=== PATIENT | male | born 1980 | race Caucasian/White ===

== ENCOUNTER 2017-01-19 11:40 | Emergency (ER) | payer OTHER ==
[2017-01-19 11:52] VITALS: BP 137/90; PULSE 89; TEMP 98.9; BMI 34.9
--- NOTE | 2017-01-19 11:53 | PDOC ---
History of Present Illness - General Chief Complaint: Chest Pain Stated Complaint: CHEST PAIN Time Seen by Provider: 01/19/17 11:53 - History of Present Illness Initial Comments: 01/19/17 13:12 Chief complaint: Epigastric pain History of present illness: Patient complains of severe epigastric pain since this morning described as a "burning" just below the xiphoid. This extends to the right upper quadrant. There is mild nausea, no vomiting, and a normal bowel movement occurred this morning. There is been no recent hematemesis, melena, or bloody stool. The patient has a history of severe GERD, is under the care of her qa internship, but has required parenteral analgesics in the past for this condition. Review of systems: Denies chest pain, shortness of breath, diaphoresis, radiation of pain to the shoulders arms or jaw, vomiting, diarrhea, constipation , hematemesis, melena, bloody stool, urinary tract symptoms, visual or focal neurologic symptoms, unsteadiness of gait. Remainder systems reviewed and found to be negative Past medical history: GERD, as noted above. Otherwise healthy. Has had GI evaluation including gallbladder sono, HIDA scan, CT scans, and endoscopy in the past without definite diagnosis made. Social history: Works as a clinical specialist medical device at [employer], no alcohol or tobacco or drugs. Fully active without disability Family history: Significant for coronary artery disease and diabetes. Physical exam: Alert and oriented 3, well-developed well-nourished, moderate distress due to epigastric pain. Cooperative Afebrile, vital signs normal No pallor or icterus. PERRLA, fundi benign, ENT clear. Neck supple without bruit mass or nodes Lungs clear to P&A CV regular without murmur rub or gallop pulses full and symmetric no JVD or edema Abdomen mildly distended, soft without organomegaly. There is moderate tenderness in the epigastrium and right upper quadrant with a positive Alegre sign. There is no lower quadrant tenderness and no CVAT Neurological intact. Gait stable and unimpaired Skin turgor adequate, no rash, mucous membranes wet Extremities no CCE Impression: Probable severe gastritis, GERD, rule out gallbladder or liver disease Plan: Analgesics, labs for further diagnosis, ultrasound of the gallbladder, and further evaluation depending on results. 01/19/17 14:40 Past History - Past Medical History Allergies/Adverse Reactions: Allergies Allergy/AdvReac Type Severity Reaction Status Date / Time No Known Allergies Allergy Verified 01/19/17 11:43 Home Medications: Ambulatory Orders Acetaminophen W/ Codeine #3 [Tylenol # 3] 2 combo PO Q4H PRN #14 tablet MDD 8 GI Disorders: Yes (GERD) Kidney Stones: Yes - Immunization History Immunization Up to Date: No - Suicide/Smoking/Psychosocial Hx Smoking History: Never smoked Have you smoked in the past 12 months: No Hx Alcohol Use: No Drug/Substance Use Hx: No Substance Use Type: None *Physical Exam - Vital Signs Last Vital Signs Temp Pulse Resp BP Pulse Ox 98.9 F 89 18 137/90 97 01/19/17 11:40 01/19/17 11:40 01/19/17 11:40 01/19/17 11:40 01/19/17 11:40 ED Treatment Course - LABORATORY CBC & Chemistry Diagram: 01/19/17 12:10 01/19/17 12:10 - ADDITIONAL ORDERS Additional order review: Laboratory Results 01/19/17 01/19/17 13:30 12:10 Sodium 136 Potassium 3.7 Chloride 105 Carbon Dioxide 23 Anion Gap 8 BUN 15 Creatinine 1.0 Creat Clearance w eGFR > 60 Random Glucose 142 H Calcium 9.3 Total Bilirubin 0.6 AST 21 ALT 31 Alkaline Phosphatase 47 Creatine Kinase 186 Creatine Kinase Index 1.7 CK-MB (CK-2) 3.2 Troponin I < 0.03 L Total Protein 7.9 Albumin 4.7 Urine Color Eva Urine Appearance Clear Urine pH 7.0 Ur Specific [place] 1.020 Urine Protein Negative Urine Glucose (UA) Negative Urine Ketones Negative Urine Blood Negative Urine Nitrite Negative Urine Bilirubin Negative Urine Urobilinogen 0.2 Ur Leukocyte Esterase Negative 01/19/17 12:10 RBC 5.28 MCV 85.0 MCHC 33.8 RDW 13.0 MPV 8.9 Neutrophils % 80.2 Lymphocytes % 13.5 Monocytes % 3.3 L Eosinophils % 0.1 Basophils % 2.9 H - RADIOLOGY Radiology Studies Ordered: Category Date Time Status ABDOMEN FLAT & UPRIGHT [RAD] Stat Radiology 01/19/17 15:03 Completed ABDOMEN US -LIMITED [US] Stat Ultrasound 01/19/17 12:24 Completed - Medications Given in the ED: ED Medications Discontinued Medications Generic Name Dose Route Start Last Admin Trade Name Freq PRN Reason Stop Dose Admin Hyoscyamine Sulfate 0.125 mg 01/19/17 14:17 01/19/17 14:20 Levsin Odt - PO 01/19/17 14:18 0.125 mg ONCE ONE Administration Pantoprazole Sodium 40 mg/ 100 mls @ 200 mls/hr 01/19/17 11:56 01/19/17 12:12 Sodium Chloride IVPB 01/19/17 12:25 200 mls/hr ONCE ONE Administration Morphine Sulfate 6 mg 01/19/17 12:21 01/19/17 12:25 Morphine Injection - IVPUSH 01/19/17 12:22 6 mg ONCE ONE Administration Morphine Sulfate 4 mg 01/19/17 14:51 01/19/17 14:57 Morphine Injection - IVPUSH 01/19/17 14:52 4 mg ONCE ONE Administration Ondansetron HCl 4 mg 01/19/17 12:00 01/19/17 12:00 Zofran Injection IVPB 01/19/17 12:01 4 mg ONCE ONE Administration Medical Decision Making - Medical Decision Making 01/19/17 13:19 White blood count normal. Remainder of CBC normal. Chemistries with a glucose of 142, normal LFTs and no other significant abnormalities. Troponin is negative. Ultrasound pending. Patient is much more comfortable after Zofran, Protonix, and morphine. 01/19/17 14:40 Ultrasound shows multiple small gallstones, but no sign of acute cholecystitis. Biliary colic is still an outside possibility. No other abnormalities are seen. The patient remains distended and suspect that the nature of the patient's pain is due to incomplete emptying the stomach and stomach distention. NG tube was recommended, but the patient refused. He has received morphine with partial relief. 01/19/17 14:42 EKG reveals normal sinus rhythm 90 per minute. There is a nonspecific ST-T wave abnormality in the inferior leads that have been present since at least December, on an old EKG. There is incomplete right bundle-branch block which was also present on prior EKG. EKG is essentially unchanged. Troponin, as noted above, is negative. The patient symptoms are not consistent with cardiac disease. 01/19/17 16:13 Patient is feeling much better. Pain is resolving. The distention and right upper quadrant tenderness has subsided. He is instructed to resume his omeprazole, prescribed Tylenol with Codeine if pain recurs, to see his qa internship for further evaluation and treatment, including endoscopy. To return to the emergency room if there is fever, vomiting, or more severe pain. Patient fully ambulatory and in no pain or other distress upon discharge with his to follow-up as directed *DC/Admit/Observation/Transfer Diagnosis at time of Disposition: Gastroenteritis - Discharge Dispostion Disposition: HOME Condition at time of disposition: Improved Admit: No - Prescriptions Prescriptions: Acetaminophen W/ Codeine #3 [Tylenol # 3] 2 combo PO Q4H PRN #14 tablet MDD 8 PRN Reason: Severe Pain - Patient Instructions Printed Discharge Instructions: DI for Gastritis Additional Instructions: Clear liquid diet tonight. Progressing as tolerated tomorrow. Resume omeprazole. Pain medication as needed. If pain worsens or there is fever, vomiting, or diarrhea, return to ER. Otherwise see her qa internship and consider repeat endoscopy. - Post Discharge Activity Forms/Work/School Notes: Back to Work
[2017-01-19] MEDS ORDERED: PANTOPRAZOLE SODIUM 40 MG in SODIUM CHLORIDE 100 ML IVPB ONE (11:56)
[2017-01-19] MEDS ORDERED: PANTOPRAZOLE SODIUM 40 MG VIAL ONE (11:58)
[2017-01-19] MEDS ORDERED: ONDANSETRON 4 MG/2 ML VIAL ONE (11:59)
[2017-01-19] MEDS ORDERED: ONDANSETRON 4 MG/2 ML VIAL IVPB ONE (12:00)
[2017-01-19 12:16] LABS: BASOPHIL 2.9 % (0-2.0); EOSINOPHIL 0.1 % (0-4.5); MCH 28.7 pg (25.7-33.7); MCHC 33.8 g/dl (32.0-35.9); MEAN PLT VOLUME 8.9 fl (7.5-11.1); NEUTROPHILS 80.2 % (42.8-82.8); PLATELET COUNT 183 K/MM3 (134-434); WHITE BLOOD COUNT 8.5 K/mm3 (4.0-10.8)
[2017-01-19] MEDS ORDERED: morphine CARPU-JECT 4 MG/1 ML DISP.SYRIN IVPUSH ONE ×2 (12:21→14:51)
[2017-01-19] MEDS ORDERED: morphine CARPU-JECT 4 MG/1 ML DISP.SYRIN ONE ×3 (12:22→14:51)
[2017-01-19] MEDS ORDERED: morphine CARPU-JECT 2 MG/1 ML DISP.SYRIN ONE (12:22)
[2017-01-19 12:40] LABS: ALBUMIN 4.7 g/dl (3.5-5.0); ALK PHOS 47 U/L (32-92); ANION GAP 8 (8-16); BILIRUBIN,TOTAL 0.6 mg/dl (0.2-1.0); CALCIUM 9.3 mg/dl (8.4-10.2); CO2 23 mmol/L (22-28); CPK 186 IU/L (39-308); GLUCOSE,RANDOM 142 mg/dl (74-106); SGOT/AST 21 U/L (10-42); SGPT/ALT 31 U/L (10-40); TOT PROT 7.9 g/dl (6.4-8.3)
[2017-01-19 12:59] LABS: TROPONIN I (DFP) < 0.03 ng/ml (0.03-0.50)
[2017-01-19 13:35] LABS: URINE APPEARANCE Clear; URINE BILIRUBIN Negative (NEGATIVE); URINE BLOOD Negative (NEGATIVE); URINE COLOR AMBER; URINE GLUCOSE (UA) Negative (NEGATIVE); URINE KETONE Negative (NEGATIVE); URINE LEUK ESTERASE Negative (NEGATIVE); URINE NITRITE Negative (NEGATIVE); URINE PROTEIN Negative (NEGATIVE); URINE UROBILINOGEN 0.2 (0.2-1.0)
[2017-01-19] MEDS ORDERED: HYOSCYAMINE SULFATE 0.125 MG *ODT PO ONE (14:17)
[2017-01-19] MEDS ORDERED: HYOSCYAMINE SULFATE 0.125 MG *ODT ONE (14:19)
--- NOTE | 2017-01-20 16:44 | EKG ---
Test Reason : Blood Pressure : / mmHG Vent. Rate : 090 BPM Atrial Rate : 090 BPM P-R Int : 164 ms QRS Dur : 094 ms QT Int : 366 ms P-R-T Axes : 029 072 004 degrees QTc Int : 447 ms SINUS RHYTHM POSSIBLE LEFT ATRIAL ENLARGEMENT NONSPECIFIC ST AND T WAVE ABNORMALITY ABNORMAL ECG WHEN COMPARED WITH ECG OF 03-JAN-2015 21:59, RSR' pattern is no longer present in V1-2 Confirmed by ZACH MANZANO, SKINNY ([id number]) on 01/20/2017 4:44:36 PM Referred By: MARY PAYNE Confirmed By:SKINNY SERRANO MD
== END 2017-01-19 16:05 | disposition home or self-care (01) ==
LOC: FER 11:40
PROC: 3E033NZ Introduction of Analgesics, Hypnotics, Sedatives into Peripheral Vein, Percutaneous Approach (ICD-10-PCS; principal; 2017-01-19)
PROC: 3E033GC Introduction of Other Therapeutic Substance into Peripheral Vein, Percutaneous Approach (ICD-10-PCS; 2017-01-19)
DX: K52.9 Noninfective gastroenteritis and colitis, unspecified (principal)
CPT/HCPCS: 36415; 74020-TC; 76705-TC; 80053; 81003; 82550; 82553; 84484; 85025; 93005; 99285-25

== ENCOUNTER 2017-10-27 06:24 | Emergency (ER) | payer OTHER ==
[2017-10-27 07:02] VITALS: BMI 33.4
--- NOTE | 2017-10-27 07:26 | PDOC ---
History of Present Illness - General Chief Complaint: Chest Pain Stated Complaint: CHEST AND ABDOMINAL PAIN Time Seen by Provider: 10/27/17 07:01 History Source: Patient Exam Limitations: No Limitations - History of Present Illness Initial Comments: 10/27/17 07:17 Mr. Cross is a 37 yo M with a hx of GERD who presents with epigastric pain since 3am today. The pain woke him up and is described as a burning crushing pain that originates in the epigastric region and radiates bilaterally to his back. It is constant, 10/10 without specific aggravating factors and denies relief with antacid and xanax. Yesterday he consumed soda and nachos for lunch and fried chicken for dinner approximately ay 5pm. He endorses having 2x vomiting events since then with "small amount of red blood" last one within the hour and had acid reflux concurrent to awakening with the pain. Denies the following: SOB, fever, radiating pain to the arms, melena, recent alcohol use, dysuria, hematuria, lower abdominal pain, and lightheadedness. Endorses having gallstones. Pmhx: GERD. Denies cardiac and respiratory disease hx. Shx: None Meds: None Allergies: None Social hx: Denies smoking, rare alcohol consumption, and substance abuse. PCP: Previously seen by Dr. David Clolado at [facility] for GI. Last visit 2 years ago for endoscopy and colonscopy; no abnormalities detected. 10/27/17 07:26 10/27/17 08:19 Past History - Past Medical History Allergies/Adverse Reactions: Allergies Allergy/AdvReac Type Severity Reaction Status Date / Time No Known Allergies Allergy Verified 10/27/17 07:00 Home Medications: Ambulatory Orders Famotidine [Pepcid -] 40 mg PO DAILY 10/27/17 Ibuprofen 600 mg PO QID PRN #20 tablet 10/27/17 Ondansetron HCl [Zofran] 8 mg PO TID PRN #15 tablet 10/27/17 Oxycodone HCl/Acetaminophen [Percocet 5-325 mg Tablet] 1 tab PO Q6H PRN #15 tablet MDD 4 10/27/17 GI Disorders: Yes (GERD) Kidney Stones: Yes - Immunization History Immunization Up to Date: No - Suicide/Smoking/Psychosocial Hx Smoking History: Never smoked Have you smoked in the past 12 months: No Information on smoking cessation initiated: No Hx Alcohol Use: No Drug/Substance Use Hx: No Substance Use Type: None Review of Systems - Review of Systems Able to Perform ROS?: Yes Constitutional: Yes: Diaphoresis. No: Chills, Fever HEENTM: No: Recent change in vision, Ear Pain, Nose Pain, Throat Pain Respiratory: No: Cough, Shortness of Breath Cardiac (ROS): No: Chest Pain, Lightheadedness, Palpitations ABD/GI: Yes: Nausea, Vomiting (Endorses having 2 events with "small amount of red blood"). No: Abdominal Distended, Blood Streaked Bowels, Constipated, Diarrhea, Rectal Bleeding, Abdominal cramping, Tarry Stools : No: Burning, Dysuria, Flank Pain, Hematuria Musculoskeletal: No: Back Pain, Joint Pain Integumentary: No: Rash Neurological: No: Headache Psychiatric: Yes: Stressors (mother is ill) Endocrine: No: Unexplained Weight Gain *Physical Exam - Vital Signs Last Vital Signs Temp Pulse Resp BP Pulse Ox 98.1 F 87 19 144/84 100 10/27/17 06:30 10/27/17 06:30 10/27/17 06:30 10/27/17 06:30 10/27/17 06:30 - Physical Exam General Appearance: Yes: Nourished, Appropriately Dressed HEENT: positive: Normal Voice Respiratory/Chest: positive: Lungs Clear, Normal Breath Sounds Cardiovascular: positive: Regular Rhythm, Regular Rate, S1, S2, Systolic Murmur Gastrointestinal/Abdominal: positive: Normal Bowel Sounds, Tender (epigastric, LUQ tenderness) Musculoskeletal: positive: Normal Inspection. negative: CVA Tenderness Extremity: positive: Normal Inspection Integumentary: positive: Normal Color, Dry, Warm Neurologic: positive: Fully Oriented, Alert ED Treatment Course - LABORATORY CBC & Chemistry Diagram: 10/27/17 07:52 10/27/17 08:10 Medical Decision Making - Medical Decision Making 10/27/17 08:23 Mr. Cross is a 37 yo M with a hx of GERD presents to the emergency department with epigastric pain with onset at 3am this morning. It radiates to the back bilaterally and has a hx of GERD and cholilithiasis Initial vitals: Initial Vital Signs Temp Pulse Resp BP Pulse Ox 98.1 F 87 19 144/84 100 10/27/17 06:30 10/27/17 06:30 10/27/17 06:30 10/27/17 06:30 10/27/17 06:30 Work up CBC, CMP, lipase, UA, urine culture, EKG, and troponins were ordered. In addition, a RUQ ultrasound was ordered. RUQ US showed cholilithiasis and fatty infiltrate in the liver. EKG was within normal limits. Regular rate, and rhythm with no signs of ST elevation/depression with repolarization abnormalities. Laboratory Results - last 24 hr 10/27/17 10/27/17 10/27/17 07:52 08:10 08:50 WBC 6.2 RBC 5.00 Hgb 14.6 Hct 42.5 MCV 85.0 MCH 29.2 MCHC 34.4 RDW 14.5 Plt Count 132 L D MPV 8.2 Absolute Neuts (auto) 5.1 Neutrophils % 82.0 Lymphocytes % 11.6 D Monocytes % 5.9 Eosinophils % 0.4 D Basophils % 0.1 Nucleated RBC % 0 Sodium 139 Potassium 4.1 Chloride 105 Carbon Dioxide 25 Anion Gap 9 BUN 15 Creatinine 1.1 Creat Clearance w eGFR > 60 Random Glucose 143 H D Calcium 8.7 Total Bilirubin 0.3 AST 23 D ALT 42 D Alkaline Phosphatase 59 Creatine Kinase 258 Creatine Kinase Index 0.9 CK-MB (CK-2) 2.41 Troponin I < 0.02 Total Protein 7.7 Albumin 4.2 Lipase 186 Urine Color Yellow Urine Appearance Slcloudy Urine pH 5.0 Ur Specific [place] 1.026 Urine Protein 1+ H Urine Glucose (UA) Negative Urine Ketones Negative Urine Blood 1+ H Urine Nitrite Negative Urine Bilirubin Negative Urine Urobilinogen Negative Ur Leukocyte Esterase Negative Urine WBC (Auto) 1 Urine RBC (Auto) <1 Urine Mucus Rare 10/27/17 11:23 *DC/Admit/Observation/Transfer Diagnosis at time of Disposition: Biliary colic - Discharge Dispostion Disposition: HOME Decision to Admit order: No - Prescriptions Prescriptions: Ibuprofen 600 mg PO QID PRN #20 tablet PRN Reason: Pain Ondansetron HCl [Zofran] 8 mg PO TID PRN #15 tablet PRN Reason: Nausea Oxycodone HCl/Acetaminophen [Percocet 5-325 mg Tablet] 1 tab PO Q6H PRN #15 tablet MDD 4 PRN Reason: Severe Pain - Referrals Referrals: Jatinder Baez MD [Staff Physician] - - Patient Instructions Printed Discharge Instructions: DI for Biliary Colic Additional Instructions: You have been diagnosed with biliary colic. Please return to the emergency department if pain worsens or other concerning symptoms arise. Do not operate a vehicle or a machinery while taking percocet. In addition, do not consume alcohol while taking percocet. Follow up with the referred doctor for surgical consultation and followup. - Post Discharge Activity
--- NOTE | 2017-10-27 07:34 | PDOC ---
Attending Attestation - Resident Resident Name: Cesar King - ED Attending Attestation I have performed the following: I have examined & evaluated the patient, The case was reviewed & discussed with the resident, I agree w/resident's findings & plan, Exceptions are as noted - HPI HPI: 10/27/17 07:32 37 year old male c/ hx of GERD, gallstones presents with upper abdominal pain since 3 am. The patient had a heavy meal yesterday night including fried chicken. Went to bed feeling well, but woke up at 3 am with severe burning epigastric pain radiating into the mid chest. Denies SOB, but reported nausea and 2 episodes of vomiting. Reportedly had a small amounts of flecks of blood on vomitus. Denies fevers, chills. Denies alcohol use, dysuria, hematuria. Pt had taken zantac overnight but did not improve the pain. Came into ED feeling uncomfortable. - Physicial Exam PE: 10/27/17 07:47 GENERAL: Awake, alert, and fully oriented. +uncomfortable appearing HEAD: No signs of trauma EYES: EOMI, sclera anicteric, conjunctiva clear ENT: Auricles normal inspection, hearing grossly normal, nares patent NECK: Normal ROM, supple ABDOMEN: Soft. No guarding, no rebound. No masses. + TTP epigastric, LUQ, and RUQ. EXTREMITIES: Normal range of motion, no edema. No clubbing or cyanosis. No cords, erythema, or tenderness NEUROLOGICAL: Cranial nerves II through XII grossly intact. Normal speech, normal gait SKIN: Warm, Dry, normal turgor, no rashes or lesions noted. - Medical Decision Making 10/27/17 07:50 Vital Signs Temp Pulse Resp BP Pulse Ox 98.1 F 87 19 144/84 100 10/27/17 06:30 10/27/17 06:30 10/27/17 06:30 10/27/17 06:30 10/27/17 06:30 Differential includes acute cholecystitis, biliary colic, gastritis, pancreatitis, vs. less likely ACS. I agree with the residents plan for RUQ ultrasound, labs including troponin and lipase. Pain control and reasses. 10/27/17 10:38 CBC, BMP 10/27/17 07:52 10/27/17 08:10 CMP Sodium 139 mmol/L (136-145) 10/27/17 08:10 Potassium 4.1 mmol/L (3.5-5.1) 10/27/17 08:10 Chloride 105 mmol/L (98-107) 10/27/17 08:10 Carbon Dioxide 25 mmol/L (21-32) 10/27/17 08:10 Anion Gap 9 (8-16) 10/27/17 08:10 BUN 15 mg/dL (7-18) 10/27/17 08:10 Creatinine 1.1 mg/dL (0.7-1.3) 10/27/17 08:10 Creat Clearance w eGFR > 60 (>60) 10/27/17 08:10 Random Glucose 143 mg/dL (74-106) H D 10/27/17 08:10 Calcium 8.7 mg/dL (8.5-10.1) 10/27/17 08:10 Total Bilirubin 0.3 mg/dL (0.2-1.0) 10/27/17 08:10 AST 23 U/L (15-37) D 10/27/17 08:10 ALT 42 U/L (12-78) D 10/27/17 08:10 Alkaline Phosphatase 59 U/L (45-117) 10/27/17 08:10 Creatine Kinase 258 IU/L (39-308) 10/27/17 08:10 Creatine Kinase Index 0.9 % (0.0-5.0) 10/27/17 08:10 CK-MB (CK-2) 2.41 ng/mL (0.5-3.6) 10/27/17 08:10 Troponin I < 0.02 ng/ml (0.00-0.05) 10/27/17 08:10 Total Protein 7.7 g/dl (6.4-8.2) 10/27/17 08:10 Albumin 4.2 g/dl (3.4-5.0) 10/27/17 08:10 Lipase 186 U/L (73-393) 10/27/17 08:10 Ultrasound demonstrates gallstones but no acute cholecystitis. Pt likely with biliary colic. however, the patient reports feeling better and would like to pursue outpatient management with the general surgeon. he feels more comfortable and will go home with family. Heart Score/ECG Review - History History: Slightly suspicious - Electrocardiogram EKG: Normal - Age Age: 45-65 - Risk Factors Risk Factors Heart Score: Yes Hx Obesity Based on the list above the patient has:: 1-2 risk factors #1 ECG reviewed & interpreted by me at: 06:45 10/27/17 07:50 NSR 90, no std/[place], normal axis, normal intervals, TWI III, QTC 464 msec
[2017-10-27] MEDS ORDERED: ONDANSETRON 4 MG/2 ML VIAL IVPUSH ONE (07:43)
[2017-10-27] MEDS ORDERED: PANTOPRAZOLE SODIUM 40 MG VIAL IVPUSH ONE (07:43)
[2017-10-27] MEDS ORDERED: SODIUM CHLORIDE 1,000 ML IV STA (07:43)
[2017-10-27] MEDS ORDERED: ACETAMINOPHEN 1000 MG/100 ML VIAL (NON FORMULARY) IVPB ONE (07:43)
[2017-10-27] MEDS ORDERED: FAMOTIDINE 20 MG/50 ML IVPB 20 MG/50 ML MG IVPB ONE ×2 (07:43→07:55)
[2017-10-27] MEDS ORDERED: MAG HYDROX/AL HYDROX/SIMETH 30 ML UNIT-DOSE CUP PO ONE (07:43)
[2017-10-27] MEDS ORDERED: SUCRALFATE 1 GM TABLET (FP) PO ONE (07:53)
[2017-10-27] MEDS ORDERED: PANTOPRAZOLE SODIUM 40 MG/100 ML BAG IVPB ONE (07:54)
[2017-10-27] MEDS ORDERED: ONDANSETRON 4 MG/2 ML VIAL ONE (07:54)
[2017-10-27] MEDS ORDERED: MAG HYDROX/AL HYDROX/SIMETH 30 ML UNIT-DOSE CUP ONE (07:54)
[2017-10-27] MEDS ORDERED: ACETAMINOPHEN INJECTION 100 ML IVPB ONE (07:54)
[2017-10-27 08:29] LABS: BASO % 0.1 % (0-2.0); EOS % 0.4 % (0-4.5); HEMATOCRIT 42.5 % (35.4-49); HEMOGLOBIN 14.6 GM/dL (11.7-16.9); LYMPH % 11.6 % (8-40); MCH 29.2 pg (25.7-33.7); MCHC 34.4 g/dl (32.0-35.9); MEAN PLT VOLUME 8.2 fl (7.5-11.1); MONO % 5.9 % (3.8-10.2); PLATELET COUNT 132 K/MM3 (134-434); RDW 14.5 % (11.9-15.9); WHITE BLOOD COUNT 6.2 K/mm3 (4.0-10.0)
[2017-10-27] MEDS ORDERED: SUCRALFATE 1 GM TABLET (FP) ONE (08:45)
[2017-10-27 08:50] LABS: ALBUMIN 4.2 g/dl (3.4-5.0); ANION GAP 9 (8-16); BLOOD UREA NITROGEN 15 mg/dL (7-18); CALCIUM 8.7 mg/dL (8.5-10.1); CHLORIDE 105 mmol/L (98-107); CO2 25 mmol/L (21-32); CREATININE 1.1 mg/dL (0.7-1.3); GLUCOSE,RANDOM 143 mg/dL (74-106); LIPASE 186 U/L (73-393); POTASSIUM 4.1 mmol/L (3.5-5.1); SGOT/AST 23 U/L (15-37); SGPT/ALT 42 U/L (12-78); SODIUM 139 mmol/L (136-145)
[2017-10-27 08:54] LABS: ALK PHOS 59 U/L (45-117); BILIRUBIN,TOTAL 0.3 mg/dL (0.2-1.0); TOT PROT 7.7 g/dl (6.4-8.2)
[2017-10-27 08:59] LABS: URINE APPEARANCE SLCLOUDY; URINE BILIRUBIN NEGATIVE (<2.0 mg/dL); URINE COLOR YELLOW; URINE GLUCOSE (UA) NEGATIVE (NEGATIVE); URINE KETONE NEGATIVE (NEGATIVE); URINE LEUK ESTERASE NEGATIVE (NEGATIVE); URINE NITRITE NEGATIVE (NEGATIVE); URINE PROTEIN 1+ (NEGATIVE); URINE UROBILINOGEN NEGATIVE mg/dL (0.2-1.0)
[2017-10-27 09:01] LABS: URINE MUCUS RARE
[2017-10-27] MEDS ORDERED: morphine CARPU-JECT 4 MG/1 ML DISP.SYRIN IVPUSH ONE (09:47)
[2017-10-27] MEDS ORDERED: SUCRALFATE 1 GM TABLET (FP) PO SCH (10:00)
[2017-10-27] MEDS ORDERED: morphine SULFATE 4 MG/ML VIAL ONE (10:40)
[2017-10-27 11:22] VITALS: BP 102/60; PULSE 79; TEMP 97.9
--- NOTE | 2017-10-27 15:20 | EKG ---
Test Reason : Blood Pressure : / mmHG Vent. Rate : 090 BPM Atrial Rate : 090 BPM P-R Int : 158 ms QRS Dur : 096 ms QT Int : 380 ms P-R-T Axes : 036 074 016 degrees QTc Int : 464 ms POOR DATA QUALITY, INTERPRETATION MAY BE ADVERSELY AFFECTED NORMAL SINUS RHYTHM NORMAL ECG WHEN COMPARED WITH ECG OF 19-JAN-2017 11:46, NO SIGNIFICANT CHANGE WAS FOUND Confirmed by JUAN MANZANO, WALT ([id number]) on 10/27/2017 3:20:35 PM Referred By: Confirmed By:WALT MARTINEZ MD
== END 2017-10-27 11:23 | disposition home or self-care (01) ==
LOC: JER 06:24
PROC: 3E0337Z Introduction of Electrolytic and Water Balance Substance into Peripheral Vein, Percutaneous Approach (ICD-10-PCS; principal; 2017-10-27)
PROC: 3E033GC Introduction of Other Therapeutic Substance into Peripheral Vein, Percutaneous Approach (ICD-10-PCS; 2017-10-27)
PROC: 3E033NZ Introduction of Analgesics, Hypnotics, Sedatives into Peripheral Vein, Percutaneous Approach (ICD-10-PCS; 2017-10-27)
PROC: 3E033GC Introduction of Other Therapeutic Substance into Peripheral Vein, Percutaneous Approach (ICD-10-PCS; 2017-10-27)
PROC: 3E033GC Introduction of Other Therapeutic Substance into Peripheral Vein, Percutaneous Approach (ICD-10-PCS; 2017-10-27)
DX: K80.50 Calculus of bile duct without cholangitis or cholecystitis without obstruction (principal); K21.9 Gastro-esophageal reflux disease without esophagitis
CPT/HCPCS: 36415; 76705-TC; 80053; 81003; 81015; 82550; 82553; 83690; 84484; 85025; 93005; 93010; 99285-25; J0131; J7030

== ENCOUNTER 2018-07-28 07:26 | Emergency (ER) | payer OTHER ==
--- NOTE | 2018-07-28 07:38 | PDOC ---
History of Present Illness - General Chief Complaint: Pain Stated Complaint: CHEST PAIN/ABD PAIN Time Seen by Provider: 07/28/18 07:38 History Source: Patient - History of Present Illness Initial Comments: 07/28/18 07:41 The patient is a 37 year old male with a PMH of GERD presents to the ED this morning c/o acute onset of abdominal and chest pain. Abdominal pain woke him from sleep at 3 a.m. and is sharp, constant, epigastric. Last meal was roast pork around 8 p.m. and last BM was this morning and was normal. Endorses three episodes of yellowish emesis after which he felt a chest pain. Chest pain is L sided, non-radiating, burning and intermittent and lasts 2-3 months. No associated shortness of breath, lightheadedness, palpitations. C/w GERD chest pain. H/o negative stress testing @ [facility] three years previous. Family history significant for CABG in father and CHF in mother. No early cardiac deaths in family. NKDA Surgical: Lipoma removal Social: social alcohol, denies other toxic habits PMD: Dr. Newby ([facility]) As per EMR, patient evaluated in ED in 10/2017 for similar complaint Past History - Past Medical History Allergies/Adverse Reactions: Allergies Allergy/AdvReac Type Severity Reaction Status Date / Time No Known Allergies Allergy Verified 07/28/18 07:34 Home Medications: Ambulatory Orders NK [No Known Home Medication] 07/28/18 COPD: No GI Disorders: Yes (GERD) Kidney Stones: Yes - Immunization History Immunization Up to Date: No - Suicide/Smoking/Psychosocial Hx Smoking History: Never smoked Have you smoked in the past 12 months: No Information on smoking cessation initiated: No Hx Alcohol Use: No Drug/Substance Use Hx: No Substance Use Type: None Review of Systems - Review of Systems Constitutional: No: Chills, Fever HEENTM: No: Recent change in vision Respiratory: No: Cough, Shortness of Breath Cardiac (ROS): Yes: Chest Pain. No: Lightheadedness, Palpitations, Syncope ABD/GI: Yes: Nausea, Vomiting, Abdominal cramping. No: Constipated, Diarrhea *Physical Exam - Vital Signs Last Vital Signs Temp Pulse Resp BP Pulse Ox 98.1 F 92 H 18 136/86 100 07/28/18 07:35 07/28/18 07:35 07/28/18 07:35 07/28/18 07:35 07/28/18 07:35 - Physical Exam General Appearance: Yes: Nourished, Obese HEENT: positive: Normal Voice, Hearing Grossly Normal Neck: positive: Trachea midline, Supple Respiratory/Chest: positive: Lungs Clear, Normal Breath Sounds. negative: Labored Respiration, Rapid RR, Crackles, Wheezing Cardiovascular: positive: S1, S2. negative: Edema, JVD, Murmur Vascular Pulses: Dorsalis-Pedis (R): 2+, Doralis-Pedis (L): 2+ Gastrointestinal/Abdominal: positive: Normal Bowel Sounds, Soft. negative: Guarding, Rebound, Tenderness Musculoskeletal: negative: CVA Tenderness (R), CVA Tenderness (L) Extremity: positive: Normal Capillary Refill, Normal Inspection Integumentary: positive: Normal Color, Dry, Warm Neurologic: positive: Fully Oriented, Alert ED Treatment Course - LABORATORY CBC & Chemistry Diagram: 07/28/18 08:32 07/28/18 08:32 Medical Decision Making - Medical Decision Making 07/28/18 08:18 37 year old non-toxic appearing male with epigastric abdominal pain, NBNB emesis associated with burning chest pain. VS unremarkable. Belly exam shows epigastric TTP, no peritoneal signs. Frontal diagnosis: GERD vs. Gastritis vs. Biliary colic vs. Acute Cholecystitis. Also consider early appendicitis, less likely SBO, mesenteric ischemic, early appy, pancreatitis. Will r/o ACS as abdominal pain could present as anginal equivalent PLAN: 1. CBC, CMP, Lipase, Lactic Acid 2. Bedside U/S 3. IV hydration, pain control with Morphine Reassess 07/28/18 08:23 Bedside U/S shows poorly visualized normal sized GB with stones (+) Alegre's sign 07/28/18 09:59 No leukocytosis, CMP unremarkable My read of CT shows GB w/stone in neck, normal sized CBD, no anterior wall thickening 07/28/18 11:07 Patient reassessed @ bedside, repeat belly exam shows minimal TTP Radiology contacted for U/S read 07/28/18 13:38 U/S shows cholelithiasis Troponin (-) CBC, CMP unremarkable CXR pending to r/o esophageal tear Gallbladder U/S: Compared to prior upper abdomen ultrasound dated 10/27/2017 The liver is enlarged measuring 20 cm in sagittal length with a slightly to moderately dense echotexture. Gallbladder is adequately distended with multiple intraluminal stones in the region of the gallbladder neck. There is borderline thickening of its wall without evidence of pericholecystic free fluid. No intra or extrahepatic bile duct dilatation is seen. The right kidney measures 10.9 cm sagittal length and appears unremarkable. Visualized portion of the pancreas appears unremarkable Visualized portion of the proximal abdominal aorta and inferior vena cava appear unremarkable. Normal flow in the main portal vein. IMPRESSION: Hepatomegaly with fatty infiltration versus hepatocellular disease. Please correlate with liver enzymes. Multiple small gallstones again seen in the region of the gallbladder neck with borderline thickening of the gallbladder wall and without evidence of pericholecystic free fluid to suggest acute cholecystitis. Correlate clinically to determine further evaluation and follow-up 07/28/18 13:51 CXR negative for esophageal tear Patient reassessed @ bedside States he has previously been evaluated for his gallstones by a surgery @ [facility] ( Dr. Dillon) Counseled on importance of follow-up and discharged home with return precautions and copy of ultrasound report I discussed the physical exam findings, final diagnoses and test results with the patient. I answered all the patient's questions. The patient understands his post discharge plan of care and will return to the Emergency Department with any new/worsening/concerning symptoms. *DC/Admit/Observation/Transfer Diagnosis at time of Disposition: Gallstones - Discharge Dispostion Disposition: HOME Condition at time of disposition: Good - Referrals Referrals: Elias Street MD [Staff Physician] - - Patient Instructions Printed Discharge Instructions: DI for Gallstones Additional Instructions: You were evaluated today for abdominal pain. An ultrasound of your gallbladder showed gallstones. You need follow-up with a surgeon for further evaluation. We have provided a referral or you can call your insurance company for a list of general surgeons. We have given you a copy of your ultrasound report. Please take this to your follow-up evaluation. Your care is not complete until you are evaluated by a surgeon. Return to the Emergency Department for any new/worsening/concerning symptoms. - Post Discharge Activity
[2018-07-28 07:39] VITALS: BP 136/86; PULSE 92; TEMP 98.1; BMI 30.8
[2018-07-28] MEDS ORDERED: SODIUM CHLORIDE 0.9% 500 ML INFUS.BAG IV ONE (07:58)
[2018-07-28] MEDS ORDERED: morphine CARPU-JECT 4 MG/1 ML DISP.SYRIN IVPUSH ONE (07:59)
[2018-07-28] MEDS ORDERED: morphine SULFATE 4 MG/ML VIAL ONE (08:29)
--- NOTE | 2018-07-28 08:29 | PDOC ---
Attending Attestation - Resident Resident Name: Isabel Richardson - ED Attending Attestation I have performed the following: I have examined & evaluated the patient, The case was reviewed & discussed with the resident, I agree w/resident's findings & plan, Exceptions are as noted - HPI HPI: 07/28/18 08:28 37yo F hx GERD, cholelithiasis presents to the ED with sudden onset epigastric pain since 3am. Reports pain began in RUQ area, then migrated to epigsatric area. It has been sharp and constant. Pain has been associated with 3 episodes of NBNB emesis. Pt had normal BM 6am. REports some mild burning chest pain right after vomiting, but that has resolved. Ate roast pork last night which he states often sets off his gallbladder. Pt has had burning cp, on and off for years, had a cardiology evaluation with reported neg stress test at [facility] 3 years ago. No family hx cardiac disease at young age DEnies fevers, chills, sob, headache, weaknes, numbness, LE edema. - Physicial Exam PE: 07/28/18 12:49 GENERAL: Awake, alert, and fully oriented, in no acute distress EYES: PERRLA, EOMI, sclera anicteric, conjunctiva clear ENT: Nares patent, oropharynx clear without exudates. Moist mucosa NECK: Normal ROM, supple, no lymphadenopathy, JVD, or masses LUNGS: Breath sounds equal, clear to auscultation bilaterally. No wheezes, and no crackles HEART: Regular rate and rhythm, normal S1 and S2, no murmurs, rubs or gallops ABDOMEN: Soft, nontender, neg murphys sign, normoactive bowel sounds. No guarding, no rebound. No masses EXTREMITIES: Normal range of motion, no edema. No cords, erythema, or tenderness NEUROLOGICAL: Normal speech, cranial nerves intact, equal strength and sensation b/l SKIN: Warm, Dry, normal turgor, no rashes or lesions noted. - Medical Decision Making 07/28/18 13:00 37yo M hx GERD, cholelithiasis presents to the ED with RUQ -> epigastric pain, N /V, and resolved burning epigastric pain Vitals unremarkable Pt non toxic appearing with no abd ttp, neg murphys (I examined pt after morphine, pt had +sonographic murphys on bedside sono by Dr. Richardson during initial eval) Labs unremarkable US with cholelithiasis but no acute cholecystitis Likely biliary colic Pt tolerating PO With regards to burning CP, likely GERD. EKG non ischemic. CXR pending UA pending Will reassess Pt has surgeon at [facility] he works that he wants to f/u with 07/28/18 18:07 UA neg CXR wnl on my read pt requests DC home Pt clinically stable for DC Heart Score/ECG Review #1 07/28/18 13:00 Twelve-lead EKG was performed and reviewed by me. Normal sinus rhythm, rate 90. Normal axis and intervals. No ST elevations
[2018-07-28 09:12] LABS: HEMATOCRIT 41.4 % (35.4-49); HEMOGLOBIN 14.4 GM/dL (11.7-16.9); MCHC 34.8 g/dl (32.0-35.9); MEAN CELL VOLUME 86.3 fl (80-96); MEAN PLT VOLUME 7.9 fl (7.5-11.1); PLATELET COUNT 151 K/MM3 (134-434); RDW 13.8 % (11.9-15.9); WHITE BLOOD COUNT 7.6 K/mm3 (4.0-10.0)
[2018-07-28 09:40] LABS: ALBUMIN 4.3 g/dl (3.4-5.0); ALK PHOS 55 U/L (45-117); ANION GAP 7 MMOL/L (8-16); BILIRUBIN,TOTAL 0.3 mg/dL (0.2-1); BLOOD UREA NITROGEN 15 mg/dL (7-18); CHLORIDE 104 mmol/L (98-107); CO2 28 mmol/L (21-32); CREATININE 1.1 mg/dL (0.55-1.3); GLUCOSE,RANDOM 124 mg/dL (74-106); LIPASE 234 U/L (73-393); POTASSIUM 3.9 mmol/L (3.5-5.1); SGOT/AST 13 U/L (15-37); SGPT/ALT 33 U/L (13-61); SODIUM 139 mmol/L (136-145); TOT PROT 8.3 g/dl (6.4-8.2)
[2018-07-28 12:55] LABS: URINE APPEARANCE CLEAR; URINE BILIRUBIN NEGATIVE (NEGATIVE); URINE COLOR YELLOW; URINE GLUCOSE (UA) NEGATIVE (NEGATIVE); URINE KETONE NEGATIVE (NEGATIVE); URINE LEUK ESTERASE NEGATIVE (NEGATIVE); URINE NITRITE NEGATIVE (NEGATIVE); URINE PROTEIN NEGATIVE (NEGATIVE); URINE UROBILINOGEN 0.2 mg/dL (0.2-1.0)
--- NOTE | 2018-07-28 14:20 | EKG ---
Test Reason : Blood Pressure : / mmHG Vent. Rate : 090 BPM Atrial Rate : 090 BPM P-R Int : 166 ms QRS Dur : 096 ms QT Int : 358 ms P-R-T Axes : 028 061 007 degrees QTc Int : 437 ms NORMAL SINUS RHYTHM NORMAL ECG WHEN COMPARED WITH ECG OF 27-OCT-2017 06:42, NO SIGNIFICANT CHANGE WAS FOUND Confirmed by KAREL JOYNER MD ([id number]) on 07/28/2018 2:20:36 PM Referred By: Confirmed By:KAREL JOYNER MD
== END 2018-07-28 15:45 | disposition home or self-care (01) ==
LOC: JER 07:26
PROC: 3E033NZ Introduction of Analgesics, Hypnotics, Sedatives into Peripheral Vein, Percutaneous Approach (ICD-10-PCS; principal; 2018-07-28)
PROC: BF43ZZZ Ultrasonography of Gallbladder and Bile Ducts (ICD-10-PCS; 2018-07-28)
DX: K80.20 Calculus of gallbladder without cholecystitis without obstruction (principal)
CPT/HCPCS: 36415; 71045-TC-FY; 76705-TC; 80053; 81003; 82550; 83605; 83690; 84484; 85027; 86850; 86900; 86901; 87086; 93005; 93010; 99283-25

== ENCOUNTER 2018-10-21 09:28 | Emergency (ER) | payer OTHER ==
[2018-10-21 09:32] VITALS: BMI 32.3
[2018-10-21] MEDS ORDERED: ACETAMINOPHEN 1000 MG/100 ML VIAL (NON FORMULARY) IVPB ONE ×2 (09:50→15:16)
[2018-10-21] MEDS ORDERED: SODIUM CHLORIDE 1,000 ML IV STA (09:50)
[2018-10-21] MEDS ORDERED: ONDANSETRON 4 MG/2 ML VIAL IVPUSH ONE (09:51)
[2018-10-21] MEDS ORDERED: FAMOTIDINE 20 MG/50 ML IVPB 20 MG/50 ML MG IVPB ONE ×2 (09:51→10:08)
--- NOTE | 2018-10-21 09:58 | PDOC ---
History of Present Illness - General History Source: Patient Exam Limitations: No Limitations <Mary Everett - Last Filed: 10/21/18 16:30> <Dahlia Jurado - Last Filed: 10/24/18 09:18> - General Chief Complaint: Pain Stated Complaint: CHEST PAIN Time Seen by Provider: 10/21/18 09:40 Past History - Travel Traveled outside of the country in the last 30 days: No Close contact w/someone who was outside of country & ill: No - Past Medical History COPD: No GI Disorders: Yes (GERD) Kidney Stones: Yes - Immunization History Immunization Up to Date: No - Suicide/Smoking/Psychosocial Hx Smoking History: Never smoked Have you smoked in the past 12 months: No Hx Alcohol Use: No Drug/Substance Use Hx: No Substance Use Type: None <Mary Everett - Last Filed: 10/21/18 16:30> <Dahlia Jurado - Last Filed: 10/24/18 09:18> - Past Medical History Allergies/Adverse Reactions: Allergies Allergy/AdvReac Type Severity Reaction Status Date / Time No Known Allergies Allergy Verified 07/28/18 07:34 Home Medications: Ambulatory Orders Ibuprofen 800 mg PO TID #30 tablet 10/21/18 Oxycodone HCl/Acetaminophen [Percocet 5-325 mg Tablet] 1 tab PO Q6H #10 tablet MDD 4 10/21/18 Tamsulosin HCl [Flomax] 0.4 mg PO DAILY #10 capsule 10/21/18 Review of Systems - Review of Systems Able to Perform ROS?: Yes Comments:: 10/21/18 09:58 CONSTITUTIONAL: Absent: fever, chills, diaphoresis, generalized weakness, malaise, loss of appetite HEENT: Absent: rhinorrhea, nasal congestion, throat pain, throat swelling, difficulty swallowing, mouth swelling, ear pain, eye pain, visual Changes CARDIOVASCULAR: Absent: chest pain, loss of consciousness, palpitations, irregular heart rate, peripheral edema RESPIRATORY: Absent: cough, shortness of breath, dyspnea with exertion, orthopnea, wheezing, stridor, hemoptysis GASTROINTESTINAL: Present: abdominal pain, nausea Absent: abdominal distension, vomiting, diarrhea , constipation, melena, hematochezia GENITOURINARY: Absent: dysuria, frequency, urgency, hesitancy, hematuria, flank pain, genital pain MUSCULOSKELETAL: Absent: myalgia, arthralgia, joint swelling SKIN: Absent: rash, itching, pallor HEMATOLOGIC/IMMUNOLOGIC: Absent: easy bleeding, easy bruising, lymphadenopathy, frequent infections ENDOCRINE: Absent: unexplained weight gain, unexplained weight loss, heat intolerance, cold intolerance NEUROLOGIC: Absent: headache, focal weakness or paresthesias, dizziness, unsteady gait, seizure, mental status changes, bladder or bowel incontinence PSYCHIATRIC: Absent: anxiety, depression, suicidal or homicidal ideation, hallucinations. Is the patient limited Micronesian proficient: No <Mary Everett - Last Filed: 10/21/18 16:30> *Physical Exam - Vital Signs Last Vital Signs Temp Pulse Resp BP Pulse Ox 98.2 F 92 H 16 159/97 97 10/21/18 09:30 10/21/18 09:30 10/21/18 09:30 10/21/18 09:30 10/21/18 09:30 - Physical Exam Comments: 10/21/18 09:59 GENERAL: Well developed, well nourished. Awake and alert. No acute distress. HEENT: Normocephalic, atraumatic. PERRLA, EOMI. No conjunctival pallor. Sclera are non- icteric. Moist mucous membranes. Oropharynx is clear. NECK: Supple. Full ROM. No JVD. Carotid pulses 2+ and symmetric, without bruits. No thyromegaly. No lymphadenopathy. CARDIOVASCULAR: Regular rate and rhythm. No murmurs, rubs, or gallops. Distal pulses are 2+ and symmetric. PULMONARY: No evidence of respiratory distress. Lungs clear to auscultation bilaterally. No wheezing, rales or rhonchi. ABDOMINAL: TTP of the epigastric region with light palpation, (+) alegre's sign. Soft. Non- distended. No rebound or guarding. No organomegaly. Normoactive bowel sounds. MUSCULOSKELETAL Normal range of motion at all joints. No bony deformities or tenderness. No CVA tenderness. EXTREMITIES: No cyanosis. No clubbing. No edema. No calf tenderness. SKIN: Warm and dry. Normal capillary refill. No rashes. No jaundice. NEUROLOGICAL: Alert, awake, appropriate. Cranial nerves 2-12 intact. No deficits to light touch and temperature in face, upper extremities and lower extremities. No motor deficits in the in face, upper extremities and lower extremities. Normoreflexic in the upper and lower extremities. Normal speech. Toes are down- going bilaterally. Gait is normal without ataxia. PSYCHIATRIC: Cooperative. Good eye contact. Appropriate mood and affect. <RamakrishnasalinaMary - Last Filed: 10/21/18 16:30> - Vital Signs Last Vital Signs Temp Pulse Resp BP Pulse Ox 99.1 F 82 16 139/73 96 10/21/18 15:44 10/21/18 15:44 10/21/18 15:44 10/21/18 15:44 10/21/18 15:44 <Dahlia Jurado - Last Filed: 10/24/18 09:18> ED Treatment Course - LABORATORY CBC & Chemistry Diagram: 10/21/18 10:16 10/21/18 10:16 <RamakrishnasalinaMary - Last Filed: 10/21/18 16:30> - LABORATORY CBC & Chemistry Diagram: 10/21/18 10:16 10/21/18 10:16 - ADDITIONAL ORDERS Additional order review: 10/21/18 10:16 RBC 5.06 MCV 85.3 MCHC 34.6 RDW 14.0 MPV 8.1 Neutrophils % 78.9 Lymphocytes % 15.3 D Monocytes % 4.5 Eosinophils % 0.6 Basophils % 0.7 D - Medications Given in the ED: ED Medications Discontinued Medications Generic Name Dose Route Start Last Admin Trade Name Shanel PRN Reason Stop Dose Admin Acetaminophen 1,000 mg 10/21/18 09:50 10/21/18 10:09 Ofirmev Injection - IVPB 10/21/18 09:51 1,000 mg ONCE ONE Administration Acetaminophen 1,000 mg 10/21/18 15:16 10/21/18 15:28 Ofirmev Injection - IVPB 10/21/18 15:17 1,000 mg ONCE ONE Administration Hydromorphone HCl 0.5 mg 10/21/18 10:34 10/21/18 10:39 Dilaudid Injection - IVPUSH 10/21/18 10:35 0.5 mg ONCE ONE Administration Hydromorphone HCl 0.5 mg 10/21/18 12:44 10/21/18 13:16 Dilaudid Injection - IVPUSH 10/21/18 12:45 0.5 mg ONCE ONE Administration Famotidine/Sodium Chloride 20 mg in 50 mls @ 100 mls/hr 10/21/18 09:51 10:09 Pepcid 20 Mg Premixed Ivpb - IVPB 10/21/18 10:20 100 mls/hr ONCE ONE Administration Sodium Chloride 1,000 mls @ 1,000 mls/hr 10/21/18 09:50 10/21/18 10:09 Normal Saline - IV 10/21/18 10:49 1,000 mls/hr ASDIR STA Administration Ketorolac Tromethamine 30 mg 10/21/18 16:31 10/21/18 16:47 Toradol Injection - IVPUSH 10/21/18 16:32 30 mg ONCE ONE Administration Ondansetron HCl 4 mg 10/21/18 09:51 10/21/18 10:09 Zofran Injection IVPUSH 10/21/18 09:52 4 mg ONCE ONE Administration <Dahlia Jurado - Last Filed: 10/24/18 09:18> Medical Decision Making - Medical Decision Making 10/21/18 10:01 The patient is a 38-year-old male past medical history of GERD, gallstones, who presents to the ER today with epigastric pain and chest pain. He states this feels like his typical gallstone colic. He believes he ate something last night that was either fatty or spicy which upset his stomach this morning. He states that he initially thought he had reflux however the pain increased so he presented to the ER today. He is scheduled to have surgery to remove his gallbladder with Dr. Dillon at [facility]. Denies fevers, chills, sore throat, cough, vomiting, constipation, diarrhea and urinary symptoms. A/P: Epigastric pain Differential diagnosis includes but is not limited to, biliary colic, cholecystitis, cholangitis, pancreatitis, gallstone pancreatitis, CBD obstruction Very tender to palpation in the right upper quadrant/epigastric region with light and deep palpation as well as positive Alegre sign. Basic labs, urine, EKG and right upper quadrant ultrasound ordered IV fluids, Zofran and GI cocktail Reevaluate 10/21/18 11:08 EKG: rate 79 BPM, NSR. Normal intervals and axis. No acute ST-T wave changes. Lipase and WBC WNL 10/21/18 16:30 Gall stones seen without sludge or evidence of cholecystitis 7mm r kidney stone seen in the distal ureter mild hyrdo noted. No UTI, CR/BUN normal Pain is controlled at this time. Likely cause of pain is the kidney stone rather than biliary colic Stone unlikely to pass on its own but pain is controlled at this time Will send patient to urology as an out patient DC home I discussed the physical exam findings, ancillary test results and final diagnoses with the patient. I answered all of the patient's questions. The patient was satisfied with the care received and felt comfortable with the discharge plan and treatment plan. The Patient agrees to follow up with the primary care physician/specialist within 24-72 hours. Return precautions were given. <Mary Everett - Last Filed: 10/21/18 16:30> *DC/Admit/Observation/Transfer - Discharge Dispostion Decision to Admit order: No <Mary Everett - Last Filed: 10/21/18 16:30> - Attestations Physician Attestion: I reviewed the case with the mid-level practitioner and agree with the mid- level practitioner's assessment, diagnosis and disposition. <Dahlia Jurado - Last Filed: 10/24/18 09:18> Diagnosis at time of Disposition: Kidney calculi, Biliary colic - Discharge Dispostion Disposition: HOME Condition at time of disposition: Stable - Prescriptions Prescriptions: Ibuprofen 800 mg PO TID #30 tablet Oxycodone HCl/Acetaminophen [Percocet 5-325 mg Tablet] 1 tab PO Q6H #10 tablet MDD 4 Tamsulosin HCl [Flomax] 0.4 mg PO DAILY #10 capsule - Referrals Referrals: Jed Hua MD [Staff Physician] - - Patient Instructions Printed Discharge Instructions: DI for Kidney Stones, DI for Prescription Opioid Use Additional Instructions: You have a kidney stone as seen on your CAT scan today. You also have biliary colic. Please follow up with a urologist this week as the stone was 7 mm. Take the Flomax daily Take the ibuprofen 800 mg every 8 hours as needed for pain starting tonight before bed. He may take the Percocet as needed for breakthrough pain. Do not drink or drive after taking this medication as it may be too sleepy. Follow-up with her general surgeon as well. Return to the ER for worsening pain, fever, painful urination or if you have any changes in your symptoms. - Post Discharge Activity Forms/Work/School Notes: Back to Work
[2018-10-21] MEDS ORDERED: ACETAMINOPHEN INJECTION 100 ML IVPB ONE ×2 (10:07→15:27)
[2018-10-21] MEDS ORDERED: ONDANSETRON 4 MG/2 ML VIAL ONE (10:07)
[2018-10-21] MEDS ORDERED: HYDROmorphone HCL CARPU-JECT 2 MG/1 ML DISP.SYRIN IVPUSH ONE ×2 (10:34→12:44)
[2018-10-21 10:38] LABS: BASO % 0.7 % (0-2.0); EOS % 0.6 % (0-4.5); HEMATOCRIT 43.2 % (35.4-49); HEMOGLOBIN 14.9 GM/dL (11.7-16.9); LYMPH % 15.3 % (8-40); MCH 29.5 pg (25.7-33.7); MCHC 34.6 g/dl (32.0-35.9); MEAN CELL VOLUME 85.3 fl (80-96); MEAN PLT VOLUME 8.1 fl (7.5-11.1); MONO % 4.5 % (3.8-10.2); NEUT % 78.9 % (42.8-82.8); PLATELET COUNT 189 K/MM3 (134-434); RBC 5.06 M/mm3 (4.00-5.60); WHITE BLOOD COUNT 7.7 K/mm3 (4.0-10.0)
[2018-10-21] MEDS ORDERED: HYDROmorphone HCl 2 MG/ML VIAL ONE ×2 (10:38→13:12)
[2018-10-21 11:00] LABS: ALBUMIN 4.7 g/dl (3.4-5.0); BILIRUBIN,TOTAL 0.4 mg/dL (0.2-1); BLOOD UREA NITROGEN 15.2 mg/dL (7-18); CALCIUM 9.5 mg/dL (8.5-10.1); CREATININE 1.1 mg/dL (0.55-1.3); POTASSIUM 4.1 mmol/L (3.5-5.1); TOT PROT 8.2 g/dl (6.4-8.2)
[2018-10-21 11:19] LABS: URINE APPEARANCE CLEAR; URINE BILIRUBIN NEGATIVE (NEGATIVE); URINE COLOR YELLOW; URINE GLUCOSE (UA) NEGATIVE (NEGATIVE); URINE KETONE NEGATIVE (NEGATIVE); URINE LEUK ESTERASE NEGATIVE (NEGATIVE); URINE NITRITE NEGATIVE (NEGATIVE); URINE PROTEIN NEGATIVE (NEGATIVE); URINE UROBILINOGEN 0.2 mg/dL (0.2-1.0)
[2018-10-21 15:42] VITALS: BP 139/73; PULSE 82; TEMP 99.1
[2018-10-21] MEDS ORDERED: KETOROLAC TROMETHAMINE 30 MG/1 ML VIAL IVPUSH ONE (16:31)
[2018-10-21] MEDS ORDERED: KETOROLAC TROMETHAMINE 30 MG/1 ML VIAL ONE (16:44)
--- NOTE | 2018-10-22 10:29 | EKG ---
Test Reason : Blood Pressure : / mmHG Vent. Rate : 079 BPM Atrial Rate : 079 BPM P-R Int : 168 ms QRS Dur : 090 ms QT Int : 386 ms P-R-T Axes : 034 070 020 degrees QTc Int : 442 ms NORMAL SINUS RHYTHM NORMAL ECG WHEN COMPARED WITH ECG OF 28-JUL-2018 07:29, NO SIGNIFICANT CHANGE WAS FOUND Confirmed by WALT MARTINEZ MD ([id number]) on 10/22/2018 10:29:41 AM Referred By: Confirmed By:WALT MARTINEZ MD
== END 2018-10-21 16:58 | disposition home or self-care (01) ==
LOC: JER 09:28
PROC: 3E033GC Introduction of Other Therapeutic Substance into Peripheral Vein, Percutaneous Approach (ICD-10-PCS; principal; 2018-10-21)
PROC: 3E0333Z Introduction of Anti-inflammatory into Peripheral Vein, Percutaneous Approach (ICD-10-PCS; 2018-10-21)
PROC: 3E033NZ Introduction of Analgesics, Hypnotics, Sedatives into Peripheral Vein, Percutaneous Approach (ICD-10-PCS; 2018-10-21)
DX: N20.0 Calculus of kidney (principal); K80.50 Calculus of bile duct without cholangitis or cholecystitis without obstruction
CPT/HCPCS: 36415; 74176-TC; 76705-TC; 80053; 81003; 83690; 85025; 93005; 93010; 99283-25; J0131; J7030

== ENCOUNTER 2020-08-16 18:03 | Emergency (ER) | payer OTHER ==
[2020-08-16 18:11] VITALS: BP 144/98; PULSE 92; TEMP 98.1; BMI 33.4
[2020-08-16] MEDS ORDERED: DIPHTH,PERTUSS(ACELL),TET 0.5 ML DISP.SYRIN IM ONE ×2 (18:21→18:23)
== END 2020-08-16 18:49 | disposition home or self-care (01) ==
LOC: JERFT 18:03 → JER 18:03 → JERFT 18:49
PROC: 3E0234Z Introduction of Serum, Toxoid and Vaccine into Muscle, Percutaneous Approach (ICD-10-PCS; principal; 2020-08-16)
DX: S61.215A Laceration without foreign body of left ring finger without damage to nail, initial encounter (principal)
CPT/HCPCS: 90715; 99284-25